=== PATIENT | female | born 1975 | race Caucasian/White ===

== ENCOUNTER 2024-08-10 18:08 | Emergency (ER) | payer MEDICAID, SELFPAY ==
[2024-08-10 18:12] VITALS: BP 145/95; PULSE 76; RESP 18; TEMP 36.9; O2SAT 100; BMI 25.0
--- NOTE | 2024-08-10 18:33 | PC.NURSE ---
Patient ambulated to treatment space. Significant other at her side.
[2024-08-10 18:52] VITALS: BP 124/84; PULSE 68; RESP 16; O2SAT 100
--- NOTE | 2024-08-10 18:53 | PC.NURSE ---
Intentional rounding performed. Patient's significant other remains at bedside. Voices no questions or concerns at this time. Vital signs obtained and as documented.
[2024-08-10] MEDS: ACETAMINOPHEN 500MG TAB 1000 MG PO (19:14)
[2024-08-10] MEDS: ACYCLOVIR 400MG TAB 800 MG PO (19:15)
[2024-08-10] MEDS: GABAPENTIN 300MG CAPSULE 300 MG PO (19:15)
[2024-08-10] MEDS: NAPROXEN 500MG TABLET 500 MG PO (19:15)
[2024-08-10 19:27] VITALS: BP 150/91; PULSE 70; RESP 16; TEMP 36.8; O2SAT 99
--- NOTE | 2024-08-10 19:34 | ED_ITS ---
Discharge Plan Disposition Patient Disposition: Home, Self-Care Condition: Good Prescriptions Prescriptions: New acyclovir 800 mg tablet 800 mg PO Q4H 7 Days Qty: 42 0RF Rx Instructions: while awake; give 5 doses in 24 hours ibuprofen 800 mg tablet 800 mg PO Q8H PRN (Reason: pain) Qty: 20 0RF gabapentin 300 mg capsule 300 mg PO Q8H PRN (Reason: pain) Qty: 12 0RF No Action quetiapine [Seroquel] 100 mg Tablet 100 mg PO HS Vraylar 3 mg Capsule 3 mg PO DAILY Referrals Follow up/Referrals: Reed German [Primary Care Provider] - See instructions Activity Restrictions/Add. Instructions Additional Instructions/Restrictions: You were evaluated in the emergency department today. 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 Use caution when taking gabapentin, as it can cause sedation. Do not drive or operate heavy machinery while taking this. You may also take Tylenol every 4-6 hours as needed for pain. Return to the emergency department for new or worsening symptoms. Follow-up closely with your primary care provider. Clinical Impressions Clinical Impression: Shingles Stand Alone Forms Stand Alone Forms: Work/School Release Instructions Patient Instructions: MALGORZATA Viramontes for Shingles Print Language Print Language: Luxembourgish Discharge ED Provider: Masha Bradley General Adult HPI General Chief complaint: Wound/Laceration Stated complaint: rash all over back and legs Time Seen by Provider: 08/10/24 18:35 Mode of Arrival: Ambulatory Source of Information: Patient Limitations: No Limitations Description of Symptoms (Recalled from ER Triage Doc. by RN): Patient presents with a rash she states starts on the left side of her back and wraps around to her groin and thighs. States she has had chicken pox in the past. States it started painful, then started to itch, and now has a rash. History of Present Illness HPI narrative: This patient is a 48-year-old female who denies significant past medical history presenting to the emergency department for evaluation with concern for painful rash. She states that it starts in her low back and comes around to her left upper thigh. She states it feels like her skin is burning and on fire. She denies ever having shingles but she has had chickenpox in the past. This started a few days ago. No other concerns noted currently. Related Data Home Medications ?Medication ?Instructions ?Recorded ?Confirmed cariprazine 3 mg capsule (Vraylar) 3 mg PO DAILY 08/10/24 08/10/24 quetiapine 100 mg tablet (Seroquel) 100 mg PO HS 08/10/24 08/10/24 Previous Rx's ?Medication ?Instructions ?Recorded acyclovir 800 mg tablet 800 mg PO Q4H 7 days #42 tabs 08/10/24 gabapentin 300 mg capsule 300 mg PO Q8H PRN pain #12 caps 08/10/24 ibuprofen 800 mg tablet 800 mg PO Q8H PRN pain #20 tabs 08/10/24 Allergies Allergy/AdvReac Type Severity Reaction Status Date / Time No Known Allergies Allergy Verified 09/24/18 20:33 [facility] Disclaimer: The information contained in this section may have been updated after the patient was seen, as this information can be updated by other users. Social History Smoking Status: Current every day smoker tobacco type: cigarettes packs per day: 1 alcohol intake: never current occupational status: other Travel in the last 8 weeks: None Have you lived/traveled outside US in past 30 days?: No Contact w/someone who lives/traveled outside US past 30 days?: No Exposure to someone with infectious disease in past 14 days?: No Do you have a fever (greater than 100.4 F or 38 C)?: No Have you tested positive for COVID-19: No Exposed to someone with COVID-19 in past 14 days?: No Do you have a sore throat?: No Do you have a cough?: No Do you have any weakness?: No Do you have any diarrhea?: No Are you experiencing any unusual bleeding?: No Do you have any muscle aches/pain?: No Do you have any abdominal pain?: No Are you experiencing loss of taste or smell?: No ROS Obtained: Yes All systems reviewed & no additional complaints except as documented Physical Exam General General appearance: alert and in no apparent distress Head Head exam: atraumatic and normocephalic Eye Eye exam: Present normal appearance, PERRL and EOMI ENT ENT exam: Present normal exam, normal oropharynx, mucous membranes moist and normal external ear exam Neck Neck exam: Present normal inspection, full ROM and trachea midline; Absent tenderness Chest Chest inspection: Present normal inspection and symmetric chest wall rise; Absent tenderness Respiratory Respiratory exam: Present normal lung sounds bilaterally; Absent respiratory distress, wheezes, stridor or accessory muscle use Cardiovascular Cardiovascular exam: Present regular rate and normal rhythm Abdominal Exam Abdominal exam: Present soft; Absent distention, tenderness or guarding Extremities Exam Extremities exam: Present normal inspection, full ROM and normal capillary refill; Absent tenderness or edema Back Exam Back exam: Present normal inspection and full ROM; Absent tenderness Neurological Exam Neurological exam: Present alert, oriented X3, CN II-XII intact and normal gait; Absent motor sensory deficit Psychiatric Psychiatric exam: Present normal affect and normal mood Skin Skin exam: Present warm, dry and rash (lumbar (L2 or L3) distribution of vesicular dermatomal rash consistent with acute herpes zoster, no concerns for superimposed bacterial infection/cellulitis) Medical Decision Making Medical Records Medical records reviewed: Yes I reviewed the patient's medical records. Screening: Per USPSTF and CDC recommendations, given the prevalence of disease in our region, it is our hospital?s policy to screen for HIV and viral Hepatitis for all patients aged 18 and over and those with ongoing risk factors. Sridhar Inquiry Pt receiving controlled substance: Yes Sridhar was queried for this patient: Yes Risks and benefits of using a controlled substance: were discussed with pt by me Vital Signs: 08/10/24 18:12 08/10/24 18:52 08/10/24 19:27 Temperature 98.4 F 98.2 F Temperature Source Oral Oral Pulse Rate 68 70 Pulse Rate [Radial] 76 Respiratory Rate 18 16 16 Blood Pressure 124/84 150/91 H Blood Pressure [R Arm] 145/95 H Blood Pressure Mean [R Arm] 111 Blood Pressure Source Automatic Cuff Blood Pressure Source [R Arm] Manual Cuff/ Auscultation Blood Pressure Position Sitting 02 Sat by Pulse Oximetry 100 100 Oxygen Delivery Method Room Air Room Air Room Air Lab Data Lab results reviewed: Yes I reviewed the patient's lab results. Orders (Tests/Meds): ED MEDICATIONS Discontinued Medications Generic Name Dose Route Start Last Admin Trade Name Freq PRN Reason Stop Dose Admin Acetaminophen 1,000 mg 08/10/24 19:06 08/10/24 19:14 Acetaminophen 500mg Tab PO 08/10/24 19:07 1,000 mg ONCE ONE Administration Acyclovir 800 mg 08/10/24 19:06 08/10/24 19:15 Acyclovir 400mg Tab PO 08/10/24 19:07 800 mg ONCE ONE Administration Gabapentin 300 mg 08/10/24 19:06 08/10/24 19:15 Gabapentin 300mg Capsule PO 08/10/24 19:07 300 mg ONCE ONE Administration Naproxen 500 mg 08/10/24 19:07 08/10/24 19:15 Naproxen 500mg Tablet PO 08/10/24 19:08 500 mg ONCE ONE Administration Medical Decision Narrative: In summary, this patient is a 48-year-old female presenting to the Emergency Department for evaluation of painful rash. Differential diagnoses considered include but are not limited to PCOS, cellulitis, contact dermatitis, SJS, TEN. Ruling out the most morbid conditions drove assessment. On exam, the patient is very well-appearing. She has a rash consistent with shingles/acute herpes zoster. Follows lumbar distribution on the left side. No concerns for superimposed bacterial infection/cellulitis based on clinical exam. 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 I feel the patient is appropriate for discharge home with prescriptions for acyclovir, gabapentin, and instructions for supportive management. She was given strict return precautions and instructions for close follow-up with PCP. Critical Care Critical Care Time Critical Care Time: No
== END 2024-08-10 19:28 | disposition home or self-care (01) ==
PROVIDERS: Emergency Provider Emergency Medicine; PCP Pediatrics
DX: B02.9 Zoster without complications (principal); R21 Rash and other nonspecific skin eruption; F17.210 Nicotine dependence, cigarettes, uncomplicated
CPT/HCPCS: 99283

== ENCOUNTER 2024-09-30 18:53 | Emergency (ER) | payer MEDICAID, SELFPAY ==
[2024-09-30] VITALS (11 sets, daily range): BP systolic 119–130; BP diastolic 79–90; PULSE 77–90; RESP 16; TEMP 36.6–36.9; O2SAT 92–100; BMI 23.8
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
[2024-09-30] MEDS: METHOCARBAMOL 500MG TABLET 1500 MG PO (19:52)
[2024-09-30 20:24] LABS: Urine Pregnancy, HCG Qual. Negative (Negative)
--- NOTE | 2024-09-30 20:35 | PC.NURSE ---
pt to scan at this time
== END 2024-09-30 21:54 | disposition home or self-care (01) ==
PROVIDERS: Emergency Provider Emergency Medicine
DX: M54.2 Cervicalgia (principal); R51.9 Headache, unspecified; V89.2XXA Person injured in unspecified motor-vehicle accident, traffic, initial encounter
CPT/HCPCS: 70450; 71250; 72125; 72128; 72131; 73130; 73562; 74176; 81025; 99285